=== PATIENT | female | born 1970 | race Caucasian/White ===

== ENCOUNTER 2016-08-15 11:31 | Inpatient (IN) ==
--- NOTE | 2016-08-15 12:28 | XRay Report ---
Referring Physician: Prashant Mcnulty Exam: XR chest 1V portable Date: August 15, 2016 at 12:10 PM Reason: CVA Comparison: Chest PA lateral April 17, 2012 Findings: The cardiac silhouette is normal in size. The lungs are poorly expanded, and there is minimal atelectasis in the perihilar regions and at both lung bases. No pneumothorax or pleural effusion is identified. No acute osseous process is seen. Impression: The lungs are poorly expanded, and there is minimal atelectasis within both lungs. PROCEDURE INTERPRETED AT [facility] DEPARTMENT OF RADIOLOGY Final Report Signed by: Dr. Timothy Alfonso
--- NOTE | 2016-08-15 12:34 | CT Report ---
CT head/brain wo con Indication: Left-sided body weakness. CT BRAIN WITHOUT CONTRAST DLP: 1073 mGy*cm. One or more of the following dose reduction techniques was used: Automated exposure control, adjustment of the mA and/or kV according the patient size, or use of iterative reconstruction techniques. Comparison: 01/07/2013. Date of admission: 08/15/2016. Technique: Axial noncontrast CT images of the brain were obtained. Findings: Left frontal infarct is unchanged when compared to prior examination. Cortical lezama-white junction and structures of the basal ganglia are otherwise well-defined. No acute hemorrhage, mass or mass effect. No significant volume loss. No bone lesions. Visualized sinuses and mastoid air cells are clear. Impression: Old left frontal lobe infarct. No acute intracranial pathology. PROCEDURE INTERPRETED AT [facility] DEPARTMENT OF RADIOLOGY Final Report Signed by: Edvin Oliver M.D.
[2016-08-15 12:48] LABS: Basophils # 0.1 10*3/uL (0.0-0.2); Basophils % 0.4 % (0.0-0.8); Eosinophils # 0.1 10*3/uL (0.0-0.87); Eosinophils % 0.7 % (0.00-10.9); Hematocrit 38.6 VOL% (35.7-47.0); Hemoglobin 12.7 GM/DL (12.0-16.0); Immature Granulocytes % 0.5 %; Immature Granulocytes Absolute 0.07 #; Lymphocytes # 3.8 10*3/uL (1.4-4.0); Lymphocytes % 28.7 % (21.3-54.2); Mean Corpuscular HGB Conc 32.9 GM/DL (32-36); Mean Corpuscular Hemoglobin 29 PG (27-34); Mean Corpuscular Volume 87.7 FL (87-102); Mean Platelet Volume 10.7 FL (9.6-12.0); Monocytes # 0.6 10*3/uL (0.11-0.8); Monocytes % 4.7 % (1.7-12.7); Neutrophils # 8.5 10*3/uL (1.4-7.4); Platelet Count 281 T/CUMM (130-400); Red Cell Distribution Width 11.9 % (9.3-17.3); White Blood Count 13.2 T/CUMM (4-12)
[2016-08-15 12:54] LABS: INR 0.9; PT Patient Result 9.9 SECS
[2016-08-15 13:21] LABS: Alanine Aminotransferase 14 U/L (13-56); Albumin 3.9 G/DL (3.4-5.0); Alkaline Phosphatase 75 U/L (45-117); Aspartate Amino Transferase 10 U/L (0-37); Bilirubin,Total < 0.39 MG/DL (0.2-1.0); Blood Urea Nitrogen 12 MG/DL (7-18); Calcium 9.1 MG/DL (8.5-10.1); Glucose 91 MG/DL (74-106); Osmolality,Calculated 282.1 MOS/KG (273-304); Potassium 3.8 MMOL/L (3.5-5.1); Sodium 142 MMOL/L (136-145); Total Protein 7.2 G/DL (6.4-8.3)
[2016-08-15 13:21] LABS: Apearance,Urine CLEAR (Clear); Bacteria,Urine Occasional /HPF (Few); Bilirubin,Urine Negative (Negative); Blood, Urine Negative (Negative); Glucose,Urine (UA) Negative (Negative); Ketones,Urine 5 mg/dL (Negative); Mucus,Urine Occasional /LPF (Occasional); Nitrite,Urine Negative (Negative); Protein,Urine Negative; Urine Color Yellow (Yellow); Urine Specific Gravity 1.005 (1.001-1.035); Urine Urobilinogen < 2.0 EU/DL (0.2-1.0)
[2016-08-15 13:33] LABS: Barbiturates Screen,Urine Negative (Negative); Benzodiazepines Screen,Urine Negative (Negative); Cannabinoid Screen,Urine Negative (Negative); Opiate Screen,Urine Positive (Negative); Phencyclidine Screen,Urine Negative (Negative)
--- NOTE | 2016-08-15 13:49 | Emergency Department Note ---
Chas Elias Meredith, am scribing for, and in the presence of, Prashant Mcnulty MD 12:02. Hamlet Elias Phillip K, MD, personally performed the services described in this documentation, ascribed by Lilian Doherty in my presence, and it is both accurate and complete 325 . Arrival - Arrival Chief Complaint: Neuro Stated Complaint: CVA ED Nursing Triage Note: EMS CALLED FOR C/O CHEST PAIN. ON FURTHER ASSESSMENT PT C/O WEAKNESS TO LEFT SIDE WITH PARALYSIS TO LEFT EXTREMITIES. PT ABLE TO ANSWER QUESTIONS APPROPRIATELY BUT SPEAKING IN A WHISPER. NO FACIAL DROOP OR SLURRED SPEECH NOTED. PT HAD SIMILAR EPISODE 2 WEEKS AGO SHE WAS NOT SEEN ABOUT. Mode of Arrival: Stretcher Limitations: Altered Mental Status (lethargic and slow to respond) Source: Patient, EMS, Old Records Reviewed, RN Notes Reviewed Time Seen by Provider: 08/15/16 11:44 - History of Present Illness HPI Narrative: Pt is a 46 y/o white female brought to the ED by EMS from her work place. They were initially called for chest pain. When EMS arrived pt was laying on the floor. Pt stated that she was weak and then went incoherent. She told EMS that 2 weeks ago she had an episode of syncope then left-sided weakness. She did not go see a doctor at that time. At the time of exam, pt will answer questions appropriately but is lethargic and slow to respond. Pt states she took vitamins , Prozac, and Provigil this morning as normal. She has a history of depression. Onset (ago): hour(s) Allergies/Adverse Reactions: Allergies Allergy/AdvReac Type Severity Reaction Status Date / Time latex Allergy RASH Verified 08/15/16 11:58 Cefaclor [From Ceclor] AdvReac Difficulty Verified 08/15/16 11:58 Breathing levofloxacin [From Levaquin] AdvReac Palpitation Verified 08/15/16 11:58 s Home Medications: Home Medications Medication Instructions Recorded Confirmed Type Cyclobenzaprine [Flexeril] 10 mg PO DAILY 09/28/14 09/28/14 History LORazepam TAB [Ativan Tab] 1 mg PO BID 09/28/14 09/28/14 History Lurasidone HCl [Latuda] 20 mg PO DAILY 09/28/14 09/28/14 History Modafinil [Provigil] 100 mg PO DAILY 09/28/14 09/28/14 History Naproxen [Naprosyn Tab] 375 mg PO BID 09/28/14 09/28/14 History traMADol TAB [Ultram] 1 - 2 tablet PO Q6H PRN 09/28/14 09/28/14 History Review of System - Review of System ROS unobtainable: due to mental status (lethargic and slow to resond) - Review of System Cardiovascular: Present: as per HPI, chest pain, syncope (2 weeks ago) Neurological: Present: as per HPI, weakness (left-sided) Medical,Surgical,& Family Hx - Medical History Psychological: History of: Anxiety Disorders, Depression - Social History Smoking Status: Never smoker Frequency of Alcohol Use: None Type of Drug Use: None Exam Vital Signs: Vital Signs Temperature 97.6 F 08/15/16 11:31 Pulse Rate 73 08/15/16 11:31 Respiratory Rate 16 08/15/16 11:40 Blood Pressure 135/75 08/15/16 11:31 O2 Sat by Pulse Oximetry 98 08/15/16 11:31 - General Exam limited due to: ALOC (lethargic and slow to respond) General appearance: in no apparent distress, lethargic, obese - Head Head exam: Present: atraumatic, normocephalic - Eye Eye exam: Present: normal appearance, PERRL, EOMI - ENT ENT exam: Present: mucous membranes moist, normal external ear exam - Neck Neck exam: Present: full ROM, trachea midline. Absent: tenderness, meningismus , lymphadenopathy, thyromegaly - Chest Chest inspection: Present: symmetric chest wall rise. Absent: tenderness, rash - Respiratory Respiratory exam: Present: normal lung sounds bilaterally. Absent: respiratory distress - Cardiovascular Cardiovascular exam: Present: regular rate, normal rhythm, normal heart sounds. Absent: murmur, rubs, gallop - Abdominal Exam Abdominal exam: Present: soft, normal bowel sounds. Absent: distention, tenderness - Extremities Exam Extremities exam: Present: full ROM, normal capillary refill. Absent: tenderness, pedal edema, calf tenderness - Back Exam Back exam: Present: full ROM. 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 Leal evaluated in the ED and does not feel TPA is indicated. - Reevaluation(s) Reevaluation #1: Patient continues to be weak in her left side. The nurses stated that she did move her left leg somewhat when they did a cath urine on her. Patient complaining of numbness in her left arm. Patient discussed with Dr. Leal who will evaluate and decide whether TPA is indicated. Time: 13:15 Results - Labs CBC & BMP: 08/15/16 12:36 08/15/16 12:36 Lab Results: I have reviewed the patients labs Labs: Laboratory Tests 08/15/16 12:36 WBC 13.2 H RBC 4.40 Hgb 12.7 Hct 38.6 Plt Count 281 Neut # (Auto) 8.5 H Laboratory Tests 08/15/16 12:36 INR 0.9 PT Patient/Control Mix 9.9 Laboratory Tests 08/15/16 08/15/16 08/15/16 12:17 12:17 12:36 Sodium 142 Potassium 3.8 Chloride 104 Carbon Dioxide 26 Anion Gap 15.8 H BUN 12 Creatinine 0.70 Urine pH 7.0 Ur Specific [place] 1.005 Urine Ketones 5 Urine Urobilinogen < 2.0 H Urine Bacteria Occasional Urine Mucus Occasional Urine Opiates Screen Positive H Ur Barbiturates Screen Negative Ur Phencyclidine Scrn Negative U Amphetamine/Methamph Negative U Benzodiazepines Scrn Negative U Cocaine Metab Screen Negative U Cannabinoids Screen Negative Serum Alcohol < 15 L - EKG EKG results: interpreted by LINDSAY, WNL, sinus rhythm - Diagnostic Findings Procedure: Chest x-ray: report reviewed by me (The lungs are poorly expanded and there is minimal atelectasis within both lungs. ), CT: report reviewed by me (Head: Old left frontal lobe infarct. No acute intracranial pathology. ) Disposition Clinical Impression: left-sided weakness, Lethargy Case discussed with: patient Disposition: Still a Patient Condition: Guarded Additional Instructions: Admitted to the hospitalist.
[2016-08-15] MEDS ORDERED: NALOXONE 0.4 MG/ML VIAL ONE (13:53)
[2016-08-15] MEDS ORDERED: NALOXONE 0.4 MG/ML VIAL IV STA (14:00)
--- NOTE | 2016-08-15 14:30 | EKG Report ---
Stationary ECG Study [facility] ER Test Date: 08/15/2016 12:01:46 PM Pat Name: ANNAMARIE KAUFMAN Department: Room: Gender: F Rat Exterminator: : 1970 Requested by: Prashant Ruiz Order Number: [id number] Reading MD: JENN NGO Intervals [place] Rate: 86 P: 999 DE: 0 QRS: 52 QRSD: 94 T: 24 QT: 393 QTc: 437 Interpretive Statements SINUS RHYTHM LOW QRS VOLTAGE IN PRECORDIAL LEADS Electronically Signed On 08-15-16 23:04:33 CDT by JENN NGO [email or web address]
--- NOTE | 2016-08-15 16:52 | Neurology Consult Note ---
History of Present Illness History of present illness: 46-year-old right-handed white lady with past medical history significant for anxiety and depression admitted to the hospital with acute onset of left-sided weakness. Patient was brought to the ED by EMS from her workplace.They were initially called for chest pain. When EMS arrived pt was laying on the floor. Pt stated that she was weak and then went incoherent. She told EMS that 2 weeks ago she had an episode of syncope then left-sided weakness. She did not go see a doctor at that time. Patient has fluent speech and good comprehension. However reporting that she she cannot move her left upper extremity but can move now her left lower extremity. She denies any difficulty in swallowing or speech. She denies any difficulty with vision. She moved her left leg when they put Mares catheter in. CT of the head was unremarkable for any acute stroke. Home Medications Medication Instructions Recorded Confirmed Type Cyclobenzaprine [Flexeril] 10 mg PO DAILY 09/28/14 09/28/14 History LORazepam TAB [Ativan Tab] 1 mg PO BID 09/28/14 09/28/14 History Lurasidone HCl [Latuda] 20 mg PO DAILY 09/28/14 09/28/14 History Modafinil [Provigil] 100 mg PO DAILY 09/28/14 09/28/14 History Naproxen [Naprosyn Tab] 375 mg PO BID 09/28/14 09/28/14 History traMADol TAB [Ultram] 1 - 2 tablet PO Q6H PRN 09/28/14 09/28/14 History Allergies Allergy/AdvReac Type Severity Reaction Status Date / Time latex Allergy RASH Verified 08/15/16 11:58 Cefaclor [From Ceclor] AdvReac Difficulty Verified 08/15/16 11:58 Breathing levofloxacin [From Levaquin] AdvReac Palpitation Verified 08/15/16 11:58 s 12 point system: reviewed and no additional remarkable complaints except as stated Medical,Surgical,& Family Hx - Medical History Psychological: History of: Anxiety Disorders, Depression - Social History Smoking Status: Never smoker Frequency of Alcohol Use: None Type of Drug Use: None Exam - Constitutional Vitals: Period Temp Pulse Resp BP Sys/Campos Pulse Ox Last 24 Hr 76-86 16-18 134-139/66-80 94-95 Exam: GENERAL: Patient is in no acute distress. NECK: Neck is supple. There is no JVD. No carotid bruits present. No thyroid masses. CVS: First and second heart sounds are normal. There is no S3 present. Regular rate and rhythm. RESPIRATORY: Lungs are clear to auscultation without any rales or rhonchi. ABDOMEN: Soft and non-tender. Bowel sounds are present. There is no hepatosplenomegaly. EXT: There is no palpable edema. Peripheral pulses are present. Skin: No rashes Central Nervous system: General: Alert, awake and Oriented x 3 Speech: Fluent Comprehension: Intact and normal Facial expressions: Normal Cranial Nerves: CN1/Olfactory: Normal CN II/ Optic: Normal, Visual Stanford unreliable CN III, and : MARQUES & EOMI CN V: Normal & intact CN VII: face is symmetric CNVIII: Normal CN XI/X/XI/XII: Intact and Normal Motor: Bulk and Tone is normal. Strength in the right 5/5 Strength in the left lower extremity 3/5, left upper extremity3-4/5. There is some element of giveaway weakness Sensory: Grossly intact for all the modalities of PP, LT and temp sense Reflexes: 1+ and symmetrical Cerebellar function: Normal finger to nose and heel to nails testing in the right but could not assess in the left. Toes: Equivocal Gait: Not tested at this time Results - Labs CBC & BMP: 08/15/16 12:36 08/15/16 12:36 Assessment and Plan (1) Left-sided weakness Status: Acute Assessment and plan: Recommend MRI of the brain Carotid ultrasound Lipid panel PT and OT consult Would not recommend TPA at this time Start and continue aspirin a day Current Visit: Yes
[2016-08-15] MEDS ORDERED: ACETAMINOPHEN 325 MG TABLET PO PRN (17:10)
--- NOTE | 2016-08-15 17:44 | Hospitalist History & Physical ---
<Pritesh Patel - Last Filed: 08/15/16 18:35> Assessment and Plan (1) Chest pain Status: Acute Assessment and plan: Obtain serial troponins. Repeat EKG. Current Visit: Yes (2) Syncope Status: Acute Assessment and plan: Neurology has been consulted. Obtain carotid dopplers, Echo. Current Visit: Yes (3) Left-sided weakness Status: Acute Assessment and plan: Symptoms have resolved. Will continue neuro checks. Neurology has been consulted. Will keep overnight for observation. Current Visit: Yes History of Present Illness Chief complaint: left-sided weakness History of present illness: Ms. Kumar is a 46 year old female with a past medical history significant for anxiety, depression, migraines who presented to the ED with sudden left-sided weakness and chest pain since approximately 11am today. Patient reports that she was at work when her chest and neck began to hurt, she became weak before she eventually experienced syncope. She was lying on the floor when EMS arrived. She reports having left-sided weakness, unable to move her arm and leg. Upon arrival in the ER, she reports regaining feeling in both her left arm and leg. Head CT was obtained in the ER revealing an old left frontal lobe infarct and no acute intracranial pathology. CXR revealed poorly expanded lungs with minimal atelectasis in both lungs. She reports that she is still experiencing numbness and tingling in her arm and leg. On exam, strength is equal bilaterally in both upper and lower extremities and reflexes are present in both arms. She appears drowsy, but her speech remains fluent and coherent. She is able to sit up using both arms to push from a lying position. She reports that the pain in her chest feels like "an elephant sitting on her". Pain was reproducible to palpation. Cardiac enzymes are negative. There is no carotid bruit present. Patient will be admitted to the hospital medicine service for observation and stroke workup. Neurology has been consulted. We will follow the recommendations of neurology and other consultants. Home Medications Medication Instructions Recorded Confirmed Type LORazepam TAB [Ativan Tab] 1 mg PO BID 09/28/14 08/15/16 History Modafinil [Provigil] 200 mg PO DAILY 09/28/14 08/15/16 History FLUoxetine [PROzac] 20 mg PO DAILY 08/15/16 08/15/16 History Allergies Allergy/AdvReac Type Severity Reaction Status Date / Time latex Allergy RASH Verified 08/15/16 11:58 Cefaclor [From Ceclor] AdvReac Difficulty Verified 08/15/16 11:58 Breathing levofloxacin [From Levaquin] AdvReac Palpitation Verified 08/15/16 11:58 s Medical,Surgical,& Family Hx - Medical History Psychological: History of: Anxiety Disorders, Depression, Previous Suicide Attempt Neurology: History of: Migraine Respiratory: History of: Bronchitis Gastrointestinal: History of: GERD, Polyps (removed), Ulcerative Colitis Musculoskeletal: Comment Only: Musculoskeletal Problems (psiatica) Reproductive: History of: Ovarian Cysts - Surgical History Cardiac Surgeries: Sugical HX of: Cardiac Catheterization HEENT Surgeries: Surgical HX of: Tonsilectomy & Adenoidectomy Abdominal Surgeries: Surgical HX of: Appendectomy, Cholecystectomy, Colonoscopy , EGD Reproductive Surgeries: Surgical HX of;: Hysterectomy Orthopedic Surgeries: Surgical HX of;: Orthopedic Surgery (right shoulder, ganglion cyst removed from right hand) - Family History Family History: Reports;: Family Cancer (mom), Family Heart Disease (dad), Family Stroke (dad) - Social History Smoking Status: Never smoker Frequency of Alcohol Use: None Type of Drug Use: None Marital Status: Lives With:: Spouse Functional capacity: independent ambulation - Constitutional Constitutional: Present: fatigue, headache(s), weakness - EENT Eyes: Present: blurry vision. Absent: loss of vision Ears: Absent: decreased hearing, ear pain Nose, mouth and throat: Present: headache(s). Absent: neck mass, neck pain, sinus pressure - Cardiovascular Cardiovascular: Present: chest pain at rest, dyspnea. Absent: edema, radiating jaw, neck or arm pain, lightheadedness - Respiratory Respiratory: Present: dyspnea. Absent: cough, wheezing - Gastrointestinal Gastrointestinal: Absent: abdominal pain, change in bowel habits, nausea, vomiting - Genitourinary Genitourinary: Absent: abnormal vaginal bleeding, difficulty urinating - Musculoskeletal Musculoskeletal: Present: muscle weakness. Absent: back pain, joint swelling - Neurological Neurological: Present: numbness, paresthesias, syncope. Absent: abnormal gait, abnormal speech - Psychiatric Psychiatric: Absent: anxiety, auditory hallucinations, difficulty concentrating - Endocrine Endocrine: Absent: cold intolerance, heat intolerance - Hematologic/Lymphatic Hematologic/Lymphatic: Absent: easy bleeding, easy bruising Exam - Constitutional Vitals: Period Temp Pulse Resp BP Sys/Campos Pulse Ox Last 24 Hr 98.0 F 75-86 16-18 134-143/64-80 94-96 Exam: General appearance: normal weight, no acute distress - Head Head exam: Present: normocephalic, atraumatic - Eye Eye exam: Present: EOMI. Absent: conjunctival injection, nystagmus Pupils: Present: MARQUES, normal accommodation - ENT ENT exam: Present: normal exam, normal external ear exam - Neck Neck exam: Present: normal inspection. Absent: lymphadenopathy, tenderness, thyromegaly - Respiratory Respiratory exam: Present: clear to auscultation bilaterally. Absent: rales, rhonchi, wheezes - Cardiovascular Cardiovascular exam: Present: regular rate and rhythm. Absent: carotid bruit, gallop, rubs - GI/Abdominal GI/Abdominal exam: Present: normal bowel sounds. Absent: ascites, distended, mass - Extremities Exam Extremities exam: Present: normal inspection, normal capillary refill. Absent: edema - Back Exam Back exam: Absent: CVA tenderness (L), CVA tenderness (R) - Neurological Exam Neurological exam: Present: alert, oriented X3, CN II-XII intact - Psychiatric Psychiatric exam: Present: flat affect, normal mood - Skin Skin exam: Present: normal color, warm, dry Results - Labs CBC & BMP: 08/15/16 12:36 08/15/16 12:36 Lab Results: I have reviewed the past 24 hour labs - EKG EKG results: interpreted by ERMD, sinus rhythm (with 2nd degree AV block) - Diagnostic Findings Procedure: Chest x-ray: report reviewed by me, CT: image reviewed by me, report reviewed by me Quality Measures - Stroke Onset of Symptoms Date: 08/15/16 <Abigail Lauren - Last Filed: 08/16/16 07:37> History of Present Illness History of present illness: Ms. Kumar is a 46 year old female with left sided weakness, we will get he a stroke work up and then r/o a possible conversion order Exam - Constitutional Vitals: Period Temp Pulse Resp BP Sys/Campos Pulse Ox Last 24 Hr 96.3 F-98.7 F 75-88 16-20 110-143/52-80 94-96 Results - Labs CBC & BMP: 08/16/16 04:12 08/16/16 04:12
[2016-08-15 18:07] LABS: Risk Ratio 4.68
[2016-08-15 18:14] LABS: Troponin I Only < 0.015 NG/ML (0.00-0.045)
--- NOTE | 2016-08-15 18:29 | Ultrasound Report ---
Bilateral carotid Doppler. Grayscale, color flow, spectral analysis performed and interpreted. Indication: Left-sided weakness. No comparison. No significant atherosclerotic changes are seen. The right internal carotid artery peak systolic velocity is 101 cm/s, with an IC/CC ratio 1.2. The left internal carotid artery peak systolic velocity is 86 cm/s, with an IC/CC ratio 1.0. There is antegrade flow within each vertebral artery. Impression: Using NASCET criteria, findings consistent with less than 50% stenosis bilaterally. PROCEDURE INTERPRETED AT [facility] DEPARTMENT OF RADIOLOGY Final Report Signed by: Dr. Kimberley Mei
[2016-08-15] MEDS: PANTOPRAZOLE 40 MG TABLET PO SCH (18:42)
[2016-08-15] MEDS: ENOXAPARIN 40 MG/0.4 ML SYRINGE SUBCUT SCH (18:43)
[2016-08-15] MEDS: LORazepam 1 MG TABLET PO SCH (20:25)
[2016-08-15] MEDS: ONDANSETRON 4 MG/2 ML VIAL IV PRN (20:25)
[2016-08-16 06:04] LABS: Basophils # 0.1 10*3/uL (0.0-0.2); Basophils % 0.6 % (0.0-0.8); Eosinophils # 0.1 10*3/uL (0.0-0.87); Hematocrit 35.4 VOL% (35.7-47.0); Hemoglobin 11.7 GM/DL (12.0-16.0); Immature Granulocytes % 0.5 %; Immature Granulocytes Absolute 0.06 #; Lymphocytes # 4.9 10*3/uL (1.4-4.0); Lymphocytes % 42.1 % (21.3-54.2); Mean Corpuscular HGB Conc 33.1 GM/DL (32-36); Mean Corpuscular Hemoglobin 29 PG (27-34); Mean Corpuscular Volume 86.8 FL (87-102); Mean Platelet Volume 11.6 FL (9.6-12.0); Monocytes # 0.6 10*3/uL (0.11-0.8); Monocytes % 5.5 % (1.7-12.7); Neutrophils # 5.9 10*3/uL (1.4-7.4); Neutrophils % 50.3 % (38.7-73.9); Platelet Count 282 T/CUMM (130-400); Red Blood Count 4.08 MC/CUMM (3.8-5.5); Red Cell Distribution Width 12.2 % (9.3-17.3); White Blood Count 11.7 T/CUMM (4-12)
[2016-08-16 06:48] LABS: Albumin 3.5 G/DL (3.4-5.0); Bilirubin,Total 0.7 MG/DL (0.2-1.0); Calcium 8.9 MG/DL (8.5-10.1); Osmolality,Calculated 285.7 MOS/KG (273-304); Potassium 4.2 MMOL/L (3.5-5.1); Risk Ratio 4.64; VLDL CHOLESTEROL 30.8 MG/DL
[2016-08-16] MEDS ORDERED: SODIUM CHLORIDE 0.9% 1,000 ML IV SCH (08:00)
[2016-08-16 08:11] LABS: Basophils # 0.1 10*3/uL (0.0-0.2); Basophils % 0.6 % (0.0-0.8); Eosinophils # 0.1 10*3/uL (0.0-0.87); Hematocrit 38.5 VOL% (35.7-47.0); Hemoglobin 12.4 GM/DL (12.0-16.0); Immature Granulocytes % 0.5 %; Immature Granulocytes Absolute 0.05 #; Lymphocytes % 36.5 % (21.3-54.2); Mean Corpuscular HGB Conc 32.2 GM/DL (32-36); Mean Corpuscular Hemoglobin 29 PG (27-34); Mean Corpuscular Volume 89.7 FL (87-102); Mean Platelet Volume 10.7 FL (9.6-12.0); Monocytes # 0.6 10*3/uL (0.11-0.8); Monocytes % 5.1 % (1.7-12.7); Neutrophils # 6.1 10*3/uL (1.4-7.4); Neutrophils % 56.3 % (38.7-73.9); Platelet Count 286 T/CUMM (130-400); Red Blood Count 4.29 MC/CUMM (3.8-5.5); Red Cell Distribution Width 12.2 % (9.3-17.3); White Blood Count 10.8 T/CUMM (4-12)
[2016-08-16] MEDS: ASPIRIN EC 325 MG TABLET PO SCH (08:16)
[2016-08-16 08:22] LABS: PT Patient Result 10.1 SECS; Partial Thromboplastin Time 27.3 SECS (0-40)
[2016-08-16] MEDS ORDERED: ATORVASTATIN 40 MG TABLET PO SCH (08:30)
[2016-08-16 08:42] LABS: Alanine Aminotransferase 15 U/L (13-56); Albumin 3.7 G/DL (3.4-5.0); Alkaline Phosphatase 67 U/L (45-117); Aspartate Amino Transferase 7 U/L (0-37); Bilirubin,Total < 0.39 MG/DL (0.2-1.0); Blood Urea Nitrogen 10 MG/DL (7-18); Calcium 8.9 MG/DL (8.5-10.1); Glucose 94 MG/DL (74-106); Osmolality,Calculated 284.8 MOS/KG (273-304); Sodium 144 MMOL/L (136-145); Total Protein 6.5 G/DL (6.4-8.3)
[2016-08-16] MEDS ORDERED: MODAFINIL PO SCH (09:00)
[2016-08-16] MEDS ORDERED: ASPIRIN EC 81 MG TABLET PO SCH (09:00)
[2016-08-16] MEDS ORDERED: ASPIRIN 325 MG TABLET PO SCH (09:00)
[2016-08-16] MEDS ORDERED: LURASIDONE HCL 20 MG PO SCH (09:00)
[2016-08-16] MEDS: LORazepam 1 MG TABLET PO SCH ×2 (09:05→21:27)
[2016-08-16] MEDS: CYCLOBENZAPRINE 10 MG TABLET PO SCH (09:05)
[2016-08-16] MEDS: PANTOPRAZOLE 40 MG TABLET PO SCH (09:05)
--- NOTE | 2016-08-16 09:37 | Magnetic Resonance Report ---
MR head/brain wo con Indication: Left-sided weakness Comparison: CT brain dated August 15, 2016 Technique: Multiplanar magnetic resonance imaging was performed of the brain without the use of intravenous contrast. Findings: Small encephalomalacia within the high left frontoparietal region consistent with old infarct. The midline structures are nondisplaced. There is no evidence of hydrocephalus. The lezama-white matter differentiation is otherwise maintained. There is no evidence of acute intracranial hemorrhage or ischemia. The included orbits and their contents appear within normal limits. T2 major vascular flow voids are maintained. IMPRESSION: No acute intracranial abnormality demonstrated. Small encephalomalacia within the high left frontoparietal region consistent with old infarct. PROCEDURE INTERPRETED AT [facility] DEPARTMENT OF RADIOLOGY Final Report Signed by: Dr Juvencio Palmer
[2016-08-16] MEDS: ONDANSETRON 4 MG/2 ML VIAL IV PRN (09:45)
[2016-08-16] MEDS: ENOXAPARIN 40 MG/0.4 ML SYRINGE SUBCUT SCH (17:43)
--- NOTE | 2016-08-16 17:50 | Neurology Progress Note ---
Neurology - PN : Subjective Interval history: Ms. Kumar seems to be doing fairly well. However this morning she had another episode where she had decreasing level of consciousness. It lasted for 10 minutes to 15 minutes. MRI of the brain was obtained stat and it did not show any acute stroke. Carotid ultrasound revealed less than 50% stenosis. Exam (Progress Note) - Constitutional Vitals: Period Temp Pulse Resp BP Sys/Campos Pulse Ox Last 24 Hr 96.3 F-99.9 F 73-88 16-20 101-120/51-69 95-97 Exam: GENERAL: Patient is in no acute distress. NECK: Neck is supple. There is no JVD. No carotid bruits present. No thyroid masses. CVS: First and second heart sounds are normal. There is no S3 present. Regular rate and rhythm. RESPIRATORY: Lungs are clear to auscultation without any rales or rhonchi. ABDOMEN: Soft and non-tender. Bowel sounds are present. There is no hepatosplenomegaly. EXT: There is no palpable edema. Peripheral pulses are present. Skin: No rashes Central Nervous system: General: Alert, awake and Oriented x 3 Speech: Fluent Comprehension: Intact and normal Facial expressions: Normal Cranial Nerves: CN1/Olfactory: Normal CN II/ Optic: Normal, Visual Stanford unreliable CN III, and : MARQUES & EOMI CN V: Normal & intact CN VII: face is symmetric CNVIII: Normal CN XI/X/XI/XII: Intact and Normal Motor: Bulk and Tone is normal. Strength in the right 5/5 Strength in the left lower extremity 4/5, left upper extremity 4/5. There is some element of giveaway weakness Sensory: Grossly intact for all the modalities of PP, LT and temp sense Reflexes: 1+ and symmetrical Cerebellar function: Normal finger to nose and heel to nails testing in the right but could not assess in the left. Toes: Equivocal Gait: Not tested at this time however she has been getting up and walking. Results - Labs CBC & BMP: 08/16/16 08:02 08/16/16 08:02 Assessment and Plan (1) Left-sided weakness Status: Acute Assessment and plan: Etiology is not clear however anxiety/functional element cannot be excluded entirely. She is also reporting headaches and will go ahead and start Topamax Okay to go home from neuro standpoint Sign off call as needed Current Visit: Yes Quality Measures - Stroke Onset of Symptoms Date: 08/15/16
[2016-08-16] MEDS: TOPIRAMATE 25 MG TABLET PO SCH (21:27)
--- NOTE | 2016-08-17 02:57 | ECHO Report ---
Sharona Kumar Exam Date: 08/16/2016 09:34 Referring Physician: Technologist: Selene Dalton RDCS Age: 46 Ht (in): 68 Wt (lb): 300 Gender: F Exam Location: [facility] Echo Indications: Chest pain, unspecified, Syncope and collapse, Left sided weakness, Lethargic BP: 110 / 52 HR: 70 Rhythm: Sinus Technical Quality: Fair IMPRESSIONS Normal LV systolic function, ejection fraction 60%. Grade 1/4 diastolic dysfunction. Trace tricuspid regurgitation. MEASUREMENTS (Male / Female) Normal Values 2D ECHO LV Diastolic Diameter PLAX 4.7 cm 4.2 - 5.9 / 3.9 - 5.3 cm LV Systolic Diameter PLAX 2.6 cm LV Fractional Shortening PLAX 45.9 % IVS Diastolic Thickness 0.9 cm 0.6 - 1.0 / 0.6 - 0.9 cm LVPW Diastolic Thickness 0.9 cm 0.6 - 1.0 / 0.6 - 0.9 cm RV Internal Dim ED PLAX 2.8 cm Aortic Root Diameter 3.2 cm LA Systolic Diameter LX 3.8 cm 3.0 - 4.0 / 2.7 - 3.8 cm FINDINGS Left Ventricle Normal left ventricular cavity size. Normal left ventricular wall thickness. Left ventricular ejection fraction is estimated at 60%. Right Ventricle The right ventricle is normal in size and function. Right Atrium The right atrium is normal in size. Left Atrium The left atrium is normal in size. Mitral Valve Morphologically normal mitral valve without significant stenosis or prolapse. There is no mitral regurgitation. Aortic Valve Morphologically normal aortic valve without significant sclerosis or stenosis. There is no aortic regurgitation. Tricuspid Valve Morphologically normal tricuspid valve. Trace tricuspid valve regurgitation. Pulmonic Valve Morphologically normal pulmonic valve without significant stenosis. There is no pulmonic regurgitation. Pericardium Normal pericardium without effusion. Aorta Normal ascending aorta dimension. Stephani Del Valle MD (Electronically Signed) Final Date: 17 August 2016 02:56
--- NOTE | 2016-08-17 08:08 | Discharge Summary ---
<Pritesh Patel - Last Filed: 08/17/16 07:56> Hospital Course - Hospital Course Hospital Course: Mrs. Kumar is a 46 year old white female with a history significant for anxiety, depression, migraines who was admitted on 08/15/2016 with sudden left- sided weakness and chest pain. On admission, symptoms had resolved. MRI showed no acute intracranial abnormalities; small encephalomalacia within the high left fronto parietal region consistent with an old infarct. Neurology was consulted and found no acute evidence of stroke, some element of giveaway weakness, with sensory motor skills grossly intact. However, she was admitted for observation. On 08/16/2016, the patient again experienced some decreasing level of consciousness which lasted approximately 10-15 minutes. Stat MRI of the brain did not show any acute stroke. Carotid dopplers revealed less than 50 % stenosis. Etiology for this weakness and decreased LOC is unclear, however, we cannot entirely rule out anxiety or some funtional element. Neurology did start the patient on Topamax for complaints of headaches. Patient has reached maximal benefit from hospitalization and is ready for discharge today. - Time spent with patient Time with patient DS: Greater than 30 minutes Diagnosis - Discharge Diagnosis (1) Chest pain Status: Acute (2) Syncope Status: Acute (3) Left-sided weakness Status: Acute Discharge Plan - Discharge Data Disposition: Disch To Home/Self Care - Discharge Medications New Acetaminophen Tab [Tylenol Tab] 325 mg PO Q4H PRN #0 tablet PRN Reason: fever, headache/body aches HYDROcodone/ACETAMIN 5-325 [[place] 5-325] 1 tablet PO Q4H PRN #20 tablet PRN Reason: Pain Mild (1-3) Atorvastatin [Lipitor] 40 mg PO BEDTIME #30 tablet Pantoprazole Tab [Protonix Tab] 40 mg PO DAILY #30 tablet Topiramate [Topamax] 25 mg PO BID #60 tablet Continue LORazepam TAB [Ativan Tab] 1 mg PO BID Modafinil [Provigil] 200 mg PO DAILY FLUoxetine [PROzac] 20 mg PO DAILY - Follow Up or Referral - Forms/Instructions Exam - Constitutional Vitals: Period Temp Pulse Resp BP Sys/Campos Pulse Ox Last 24 Hr 97.7 F-98.5 F 69-83 16-20 101-118/51-61 95-97 Discharge Results Labs on day of discharge: Labs from last 24 hours 08/16/16 07:55 POC Glucose 94 DS: Provider Date of admission: 08/15/16 15:50 Primary care physician: . No PCP Attending physician on admission: Abigail Lauren MD Consults: 08/15/16 17:10 Consult to Physical Therapy [CONS] Routine Reason for Physical Therapy: Weakness 08/15/16 17:18 Consult to Dietitian [CONS] Routine Reason for Dietitian: Other 08/16/16 08:44 Consult to Occupational Therapy [CONS] Routine Reason for Occupational Therapy: Evaluate and Treat Discharging clinician: Pritesh ESCALONA Expected date of discharge: 08/17/16 <Abigail Lauren - Last Filed: 08/17/16 11:51> Hospital Course - Hospital Course Hospital Course: Time spent: 45mins - Time spent with patient Time with patient DS: Greater than 30 minutes Diagnosis - Discharge Diagnosis (1) Left-sided weakness Status: Acute (2) Chest pain Status: Acute (3) Syncope Status: Acute Discharge Plan - Discharge Data Condition at Discharge: Stable Discharge Diet: advance to your usual diet Activity: resume usual activities as tolerated - Forms/Instructions Additional Discharge Instructions: follow with PCP in 1week
[2016-08-17] MEDS: PANTOPRAZOLE 40 MG TABLET PO SCH (08:16)
[2016-08-17] MEDS: LORazepam 1 MG TABLET PO SCH (08:16)
[2016-08-17] MEDS: TOPIRAMATE 25 MG TABLET PO SCH (08:16)
[2016-08-17] MEDS: ASPIRIN EC 325 MG TABLET PO SCH (08:16)
[2016-08-17] MEDS: CYCLOBENZAPRINE 10 MG TABLET PO SCH (08:16)
[2016-08-17 11:54] VITALS: BP 124/62
== END 2016-08-17 12:30 | disposition home or self-care (01) | DRG 948 ==
LOC: EDUNIT# → EDBD → N.ED 11:31 → N.EDINP 15:50 → N.TELES 17:09
PROVIDERS: ADMIT Internal Medicine; ATTEND Internal Medicine

== ENCOUNTER 2016-08-25 12:08 | Observation (INO) ==
[2016-08-25 12:54] LABS: Basophils # 0.1 10*3/uL (0.0-0.2); Basophils % 0.4 % (0.0-0.8); Eosinophils # 0.1 10*3/uL (0.0-0.87); Eosinophils % 0.7 % (0.00-10.9); Hematocrit 38.8 VOL% (35.7-47.0); Hemoglobin 12.7 GM/DL (12.0-16.0); Immature Granulocytes % 0.6 %; Immature Granulocytes Absolute 0.07 #; Lymphocytes # 3.8 10*3/uL (1.4-4.0); Mean Corpuscular HGB Conc 32.7 GM/DL (32-36); Mean Corpuscular Hemoglobin 29 PG (27-34); Mean Corpuscular Volume 87.6 FL (87-102); Mean Platelet Volume 10.8 FL (9.6-12.0); Monocytes # 0.5 10*3/uL (0.11-0.8); Monocytes % 4.3 % (1.7-12.7); Platelet Count 308 T/CUMM (130-400); Red Blood Count 4.43 MC/CUMM (3.8-5.5); Red Cell Distribution Width 12.1 % (9.3-17.3); White Blood Count 12.6 T/CUMM (4-12)
[2016-08-25 13:10] LABS: Alanine Aminotransferase 17 U/L (13-56); Albumin 4.1 G/DL (3.4-5.0); Alkaline Phosphatase 81 U/L (45-117); Aspartate Amino Transferase 10 U/L (0-37); Bilirubin,Total < 0.39 MG/DL (0.2-1.0); Blood Urea Nitrogen 12 MG/DL (7-18); Calcium 8.7 MG/DL (8.5-10.1); Glucose 102 MG/DL (74-106); Lactic Acid 1.3 MMOL/L (0.4-2.0); Osmolality,Calculated 278.4 MOS/KG (273-304); Potassium 3.9 MMOL/L (3.5-5.1); Sodium 140 MMOL/L (136-145); Total Protein 6.9 G/DL (6.4-8.3)
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
[2016-08-25] MEDS ORDERED: ACETAMINOPHEN 325 MG TABLET PO PRN (14:49)
[2016-08-25] MEDS ORDERED: ONDANSETRON 4 MG/2 ML VIAL IV PRN (14:49)
[2016-08-25] MEDS ORDERED: LACTULOSE 20 GM/30 ML UDCUP PO PRN (14:49)
--- NOTE | 2016-08-25 17:37 | Hospitalist History & Physical ---
<Pritesh Patel - Last Filed: 08/25/16 18:23> Assessment and Plan - Time spent with patient Time spent with patient: Greater than 30 minutes (1) Left-sided weakness Status: Acute Assessment and plan: Patient describes continued left-sided weakness. She had an MRI this morning. Results are pending. Will order an EEG for tomorrow. Neurology has been consulted. Current Visit: No (2) Syncope Status: Acute Current Visit: No History of Present Illness Chief complaint: seizure History of present illness: Ms. Kumar is a 46 year old female with a history of cerebral hematoma, migraine who presents to the ER for evaluation of seizure-like activity with onset today. The patient reports that she was having an MRI done today when she began to have a metallic taste in her mouth and her upper and lower limbs began to jerk. Patient states that she then went to "sleep" and did not remember much about the episode when she came to. She says that she was told to come to the ER but she refused. She instead went to her primary care physician who insisted that she comes to the ER with the symptoms she was describing. Patient was last seen in the ED on 08/15/2016 with similar complaints, syncope and left-sided weakness. During that visit, she was seen by neurology and had multiple CT scans as well as MRIs that were all negative. She was discharged with follow-up appointment with neurology. On exam today, the patient reports continued left-sided weakness that is due to what she reports her PCP to call "brain seizures". Reflexes are all normal, strength is greater on the right side than the left. However, when patient was asked to hold up her left arm she held it with no problem, and she talks with her hands. She also reports a headache. Neurology has agreed to see the patient therefore she will be admitted to the hospital medicine service for evaluation and further management. Home Medications Medication Instructions Recorded Confirmed Type LORazepam TAB [Ativan Tab] 1 mg PO BID 09/28/14 08/25/16 History Modafinil [Provigil] 200 mg PO QAM 09/28/14 08/25/16 History FLUoxetine [PROzac] 20 mg PO QAM 08/15/16 08/25/16 History Acetaminophen Tab [Tylenol Tab] 325 mg PO Q4H PRN #0 tablet 08/17/16 08/25/16 Rx Atorvastatin [Lipitor] 40 mg PO BEDTIME #30 tablet 08/17/16 08/25/16 Rx HYDROcodone/ACETAMIN 5-325 [[place] 1 tablet PO Q4H PRN #20 tablet 08/17/16 Rx 5-325] Aspirin EC Tab 81 mg PO QPM 08/25/16 08/25/16 History Pantoprazole Tab [Protonix Tab] 40 mg PO QPM 08/25/16 08/25/16 History Topiramate [Topamax] 50 mg PO BID 08/25/16 08/25/16 History Allergies Allergy/AdvReac Type Severity Reaction Status Date / Time latex Allergy RASH Verified 08/25/16 12:13 Cefaclor [From Ceclor] AdvReac Difficulty Verified 08/25/16 12:13 Breathing levofloxacin [From Levaquin] AdvReac Palpitation Verified 08/25/16 12:13 s Medical,Surgical,& Family Hx - Medical History Psychological: History of: Depression, Previous Suicide Attempt Neurology: History of: Migraine Respiratory: History of: Bronchitis Gastrointestinal: History of: GERD, Polyps (removed), Ulcerative Colitis Musculoskeletal: Comment Only: Musculoskeletal Problems (psiatica) Reproductive: History of: Ovarian Cysts - Surgical History Cardiac Surgeries: Sugical HX of: Cardiac Catheterization Thoracic Surgeries: Patient denies;: Organ Transplant Neurologic Surgeries: Patient denies: Neurologic Surgery HEENT Surgeries: Surgical HX of: Tonsilectomy & Adenoidectomy Abdominal Surgeries: Surgical HX of: Appendectomy, Cholecystectomy, Colonoscopy , EGD Reproductive Surgeries: Surgical HX of;: Hysterectomy Orthopedic Surgeries: Surgical HX of;: Orthopedic Surgery (right shoulder, ganglion cyst removed from right hand) - Family History Family History: Reports;: Family Cancer (mom), Family Heart Disease (dad), Family Stroke (dad) - Social History Smoking Status: Never smoker Frequency of Alcohol Use: None Type of Drug Use: None Marital Status: Lives With:: Spouse Functional capacity: independent ambulation - Constitutional Constitutional: Present: fatigue, headache(s), weakness. Absent: frequent falls , weight loss - EENT Eyes: Present: blurry vision. Absent: diplopia Ears: Absent: decreased hearing, ear pain Nose, mouth and throat: Present: headache(s). Absent: dysphagia, neck pain, vertigo - Cardiovascular Cardiovascular: Present: dyspnea, lightheadedness. Absent: chest pain at rest, diaphoresis, edema, radiating jaw, neck or arm pain, palpitations - Respiratory Respiratory: Present: dyspnea. Absent: cough, hemoptysis, wheezing, snoring, pain on inspiration - Gastrointestinal Gastrointestinal: Absent: abdominal pain, change in bowel habits, coffee ground emesis, hematemesis, hematochezia, nausea - Genitourinary Genitourinary: Absent: difficulty urinating, dysuria - Musculoskeletal Musculoskeletal: Absent: back pain, joint swelling, muscle weakness - Neurological Neurological: Present: dizziness, headache(s), numbness, syncope. Absent: abnormal gait, abnormal speech, paresthesias - Psychiatric Psychiatric: Absent: anxiety, depression - Endocrine Endocrine: Present: fatigue. Absent: cold intolerance, heat intolerance - Hematologic/Lymphatic Hematologic/Lymphatic: Absent: easy bleeding, easy bruising Exam - Constitutional Vitals: Period Temp Pulse Resp BP Sys/Campos Pulse Ox Last 24 Hr 98.2 F 78 20 141/75 100 Exam: General appearance: normal weight, no acute distress - Head Head exam: Present: normocephalic, atraumatic - Eye Eye exam: Present: EOMI. Absent: conjunctival injection, nystagmus Pupils: Present: MARQUES, normal accommodation - ENT ENT exam: Present: normal exam, normal external ear exam - Neck Neck exam: Present: normal inspection. Absent: lymphadenopathy, tenderness, thyromegaly - Respiratory Respiratory exam: Present: clear to auscultation bilaterally. Absent: rales, rhonchi, wheezes - Cardiovascular Cardiovascular exam: Present: regular rate and rhythm. Absent: carotid bruit, gallop, rubs - GI/Abdominal GI/Abdominal exam: Present: normal bowel sounds. Absent: ascites, distended, mass - Extremities Exam Extremities exam: Present: normal inspection, normal capillary refill. Absent: edema - Back Exam Back exam: Absent: CVA tenderness (L), CVA tenderness (R) - Neurological Exam Neurological exam: Present: alert, oriented X3 - Psychiatric Psychiatric exam: Present: normal affect, normal mood - Skin Skin exam: Present: normal color, warm, dry Results - Labs CBC & BMP: 08/25/16 12:43 08/25/16 12:43 Lab Results: I have reviewed the past 24 hour labs <Sudha Emanuel - Last Filed: 08/25/16 19:27> History of Present Illness History of present illness: Ms. Kumar is a 46 year old female whom I saw independently from [facility] and I agree with his summary above. She tells me she felt very stressed out for months at work and that on 08/15 when the first spell of lethargy/unresponsiveness happened the stress had recently gotten better. She was admitted and stroke was ruled out last week after coming from work by ambulance. Since discharge she has been to see Dr Leal and her PCP. Today she had an outpatient MRI. I called the nurse at MRI to hear what she witnessed as the patient reported having a seizure with shaking head and face, numb lip, hands that shook so bad she couldn't hold the call button and toe shaking. The nurse Amairani Murphy reports she watchd her through the window during the MRI per protocol and did not see any movement in the MRI. The patient also had normal prolactin in ER. During the interview she complained of weakness in her left arm and it was weak in all testing but she used it o speak and move in the bed without trouble. Her MRI did not show acute stroke or motion artifact. Dr Leal has been consulted. [place] ordered an EEG, and continued her home meds. Exam - Constitutional Vitals: Period Temp Pulse Resp BP Sys/Campos Pulse Ox Last 24 Hr 98.2 F 78 20 141/75 100 Results - Labs CBC & BMP: 08/25/16 12:43 08/25/16 12:43
[2016-08-25] MEDS: NON-FORMULARY MEDICATION (Modafinil [Provigil] 200 MG) PO SCH (17:40)
[2016-08-25] MEDS ORDERED: LORazepam 1 MG TABLET PO PRN (17:53)
[2016-08-25 20:04] LABS: Apearance,Urine CLEAR (Clear); Bacteria,Urine Occasional /HPF (Few); Bilirubin,Urine Negative (Negative); Blood, Urine Negative (Negative); Glucose,Urine (UA) Negative (Negative); Ketones,Urine Negative (Negative); Mucus,Urine Few /LPF (Occasional); Nitrite,Urine Negative (Negative); Protein,Urine Negative; RBC,Urine <1 /HPF (0-4); Squamous Epithelial Cell,Urine Occasional /HPF (0-10); Urine Color Yellow (Yellow); Urine Specific Gravity 1.027 (1.001-1.035); Urine Urobilinogen < 2.0 EU/DL (0.2-1.0); WBC,Urine <1 /HPF (0-6)
[2016-08-25] MEDS: TOPIRAMATE 25 MG TABLET PO SCH (20:16)
[2016-08-25] MEDS ORDERED: ATORVASTATIN 40 MG TABLET PO SCH (21:00)
[2016-08-25] MEDS ORDERED: LORazepam 1 MG TABLET PO SCH ×2 (21:00)
[2016-08-25] MEDS ORDERED: ASPIRIN EC 81 MG TABLET PO SCH (21:00)
[2016-08-26 06:27] LABS: Basophils % 0.4 % (0.0-0.8); Eosinophils # 0.2 10*3/uL (0.0-0.87); Eosinophils % 1.7 % (0.00-10.9); Hematocrit 33.5 VOL% (35.7-47.0); Hemoglobin 11.2 GM/DL (12.0-16.0); Immature Granulocytes % 0.6 %; Immature Granulocytes Absolute 0.07 #; Lymphocytes # 4.6 10*3/uL (1.4-4.0); Lymphocytes % 41.5 % (21.3-54.2); Mean Corpuscular HGB Conc 33.4 GM/DL (32-36); Mean Corpuscular Hemoglobin 29 PG (27-34); Mean Corpuscular Volume 86.6 FL (87-102); Mean Platelet Volume 11.6 FL (9.6-12.0); Monocytes # 0.7 10*3/uL (0.11-0.8); Monocytes % 6.2 % (1.7-12.7); Neutrophils # 5.4 10*3/uL (1.4-7.4); Neutrophils % 49.6 % (38.7-73.9); Platelet Count 280 T/CUMM (130-400); Red Blood Count 3.87 MC/CUMM (3.8-5.5); Red Cell Distribution Width 12.3 % (9.3-17.3)
[2016-08-26 07:05] LABS: Albumin 3.2 G/DL (3.4-5.0); Bilirubin,Total 0.7 MG/DL (0.2-1.0); Calcium 8.2 MG/DL (8.5-10.1); Potassium 3.8 MMOL/L (3.5-5.1); Total Protein 5.8 G/DL (6.4-8.3)
[2016-08-26] MEDS: NON-FORMULARY MEDICATION (Modafinil [Provigil] 200 MG) PO SCH (08:43)
[2016-08-26] MEDS: TOPIRAMATE 25 MG TABLET PO SCH (08:43)
[2016-08-26] MEDS ORDERED: FLUoxetine 20 MG CAPSULE PO SCH ×2 (09:00→11:56)
--- NOTE | 2016-08-26 09:40 | Hospitalist Progress Note ---
Assessment and Plan (1) Abnormal liver function test Status: Acute Assessment and plan: Dr. Garzon saw the day is going watch over the next several days also check a hepatitis profile Current Visit: Yes (2) Congestive heart failure Status: Acute Assessment and plan: Better with dialysis probably just pulmonary edema Current Visit: Yes (3) Chest pain Status: Acute Assessment and plan: I can give any history of chest pain today's troponin is stable at 0.2 and a patient in renal failure we'll just watch Current Visit: No (4) End stage renal disease Status: Acute Assessment and plan: Has received dialysis followed by renal Current Visit: Yes Hospitalist: Subjective Interval history: Patient not giving much history this morning but no distress Exam - Constitutional Vitals: Period Temp Pulse Resp BP Sys/Campos Pulse Ox Last 24 Hr 97.8 F-98.2 F 71-84 14-20 97-156/52-85 96-100 Exam: Constitutional: General appearance is normal Eyes: Pupils equal round react to light and accommodation conjunctiva and lids are normal Neck: supple without masses Respiratory: Respiratory effort is normal. Lungs are clear to auscultation. Resonant to percussion. Cardiac: Regular rate and rhythm without murmur rub or gallop. PMI at the midclavicular line by palpation. Carotid arteries 2+ palpation no bruits GI: Bowel sounds normoactive, no tenderness or rebound tenderness, no organomegaly Extremities: no clubbing cyanosis or edema Results - Labs CBC & BMP: 08/26/16 05:08 08/26/16 05:08
--- NOTE | 2016-08-26 09:45 | Hospitalist Progress Note ---
Assessment and Plan (1) Syncope Status: Acute Assessment and plan: Patient admitted with a complicated spell had a MRI done yesterday that shows old encephalomalacia may be a small meningioma but no acute infarcts discussed the case with Dr. Pal my he's going to come see the patient. Currently patient is hemodynamically stable is anemic on lab weight neurology opinion for further workup Current Visit: No (2) Left-sided weakness Status: Acute Current Visit: Yes Hospitalist: Subjective Interval history: had one spell last night not near as bad as she had yesterday while she was in the MRI, she is awake and alert today without complaints Exam - Constitutional Vitals: Period Temp Pulse Resp BP Sys/Campos Pulse Ox Last 24 Hr 97.8 F-98.2 F 71-84 14-20 97-156/52-85 96-100 Exam: Constitutional: General appearance is normal Eyes: Pupils equal round react to light and accommodation conjunctiva and lids are normal Neck: supple without masses Respiratory: Respiratory effort is normal. Lungs are clear to auscultation. Resonant to percussion. Cardiac: Regular rate and rhythm without murmur rub or gallop. PMI at the midclavicular line by palpation. Carotid arteries 2+ palpation no bruits GI: Bowel sounds normoactive, no tenderness or rebound tenderness, no organomegaly Extremities: no clubbing cyanosis or edema Results - Labs CBC & BMP: 08/26/16 05:08 08/26/16 05:08
--- NOTE | 2016-08-26 11:49 | Neurology Consult Note ---
History of Present Illness History of present illness: 46 years old right-handed white lady reports that she was having an MRI done yesterday and when she was given the contrast she began to have a metallic taste in her mouth and her upper and lower limbs began to jerk. Patient states that she then went to "sleep" and did not remember much about the episode when she came to. She called Dr. Costello who instructed her to go to the ER. Patient was last seen in the ED on 08/15/2016 with similar complaints, syncope and left- sided weakness. During that visit, she was seen by me and had multiple CT scans as well as MRIs that were all negative. Her repeat MRI does not reveal any acute pathology. She underwent EEG today and had couple of episodes during the EEG characterized by finger tapping and sort of unresponsiveness. EEG was completely within normal limits. Home Medications Medication Instructions Recorded Confirmed Type LORazepam TAB [Ativan Tab] 1 mg PO BID 09/28/14 08/25/16 History Modafinil [Provigil] 200 mg PO QAM 09/28/14 08/25/16 History FLUoxetine [PROzac] 20 mg PO QAM 08/15/16 08/25/16 History Acetaminophen Tab [Tylenol Tab] 325 mg PO Q4H PRN #0 tablet 08/17/16 08/25/16 Rx Atorvastatin [Lipitor] 40 mg PO BEDTIME #30 tablet 08/17/16 08/25/16 Rx HYDROcodone/ACETAMIN 5-325 [[place] 1 tablet PO Q4H PRN #20 tablet 08/17/16 Rx 5-325] Aspirin EC Tab 81 mg PO QPM 08/25/16 08/25/16 History Pantoprazole Tab [Protonix Tab] 40 mg PO QPM 08/25/16 08/25/16 History Topiramate [Topamax] 50 mg PO BID 08/25/16 08/25/16 History Allergies Allergy/AdvReac Type Severity Reaction Status Date / Time latex Allergy RASH Verified 08/25/16 12:13 Cefaclor [From Ceclor] AdvReac Difficulty Verified 08/25/16 12:13 Breathing levofloxacin [From Levaquin] AdvReac Palpitation Verified 08/25/16 12:13 s 12 point system: reviewed and no additional remarkable complaints except as stated Medical,Surgical,& Family Hx - Medical History Psychological: History of: Depression, Previous Suicide Attempt Neurology: History of: Migraine Respiratory: History of: Bronchitis Gastrointestinal: History of: GERD, Polyps (removed), Ulcerative Colitis Musculoskeletal: Comment Only: Musculoskeletal Problems (psiatica) Reproductive: History of: Ovarian Cysts - Surgical History Cardiac Surgeries: Sugical HX of: Cardiac Catheterization Thoracic Surgeries: Patient denies;: Organ Transplant Neurologic Surgeries: Patient denies: Neurologic Surgery HEENT Surgeries: Surgical HX of: Tonsilectomy & Adenoidectomy Abdominal Surgeries: Surgical HX of: Appendectomy, Cholecystectomy, Colonoscopy , EGD Reproductive Surgeries: Surgical HX of;: Hysterectomy Orthopedic Surgeries: Surgical HX of;: Orthopedic Surgery (right shoulder, ganglion cyst removed from right hand) - Family History Family History: Reports;: Family Cancer (mom), Family Heart Disease (dad), Family Stroke (dad) - Social History Smoking Status: Never smoker Frequency of Alcohol Use: None Type of Drug Use: None Exam - Constitutional Vitals: Period Temp Pulse Resp BP Sys/Campos Pulse Ox Last 24 Hr 97.8 F-98.2 F 71-84 14-20 97-156/52-85 96-100 Exam: GENERAL: Patient is in no acute distress. NECK: Neck is supple. There is no JVD. No carotid bruits present. No thyroid masses. CVS: First and second heart sounds are normal. There is no S3 present. Regular rate and rhythm. RESPIRATORY: Lungs are clear to auscultation without any rales or rhonchi. ABDOMEN: Soft and non-tender. Bowel sounds are present. There is no hepatosplenomegaly. EXT: There is no palpable edema. Peripheral pulses are present. Skin: No rashes Central Nervous system: General: Alert, awake and Oriented x 3 Speech: Fluent Comprehension: Intact and normal Facial expressions: Normal Cranial Nerves: CN1/Olfactory: Normal CN II/ Optic: Normal, Visual [place] unreliable CN III, and : MAQRUES & EOMI CN V: Normal & intact CN VII: face is symmetric CNVIII: Normal CN XI/X/XI/XII: Intact and Normal Motor: Bulk and Tone is normal. Strength in the right 5/5 Strength in the left 5/5 Sensory: Grossly intact for all the modalities of PP, LT and temp sense Reflexes: 1+ and symmetrical Cerebellar function: Normal finger to nose and heel to nails testing. Toes: Equivocal Gait: Normal heel to heel and toe to toe and tandem walk. Results - Labs CBC & BMP: 08/26/16 05:08 08/26/16 05:08 Assessment and Plan (1) Syncope Status: Acute Assessment and plan: We will consult [facility] epilepsy department for further evaluation as an outpatient Current Visit: No (2) Anxiety Status: Acute Assessment and plan: Continue Prozac continues to 40 mg daily Current Visit: Yes (3) Chronic migraine Status: Acute Assessment and plan: Continue Topamax the same dose Follow-up with me as needed Current Visit: Yes
[2016-08-26 12:10] VITALS: BP 141/88
--- NOTE | 2016-08-26 13:26 | Discharge Summary ---
Hospital Course - Hospital Course Hospital Course: Patient was admitted to the hospital with of 20 spell during MRI her MRI turned out to show old stroke the neurologist saw her while she was here and felt like her biggest issues related EPILEPSY set her up [facility] to be evaluated increase her Prozac to 40 mg daily. Laboratory data showed a hematocrit of 33 otherwise normal chemistry profile I'll be in the 3.2 urine unremarkable. One set of vital signs showed a little drop in blood pressure otherwise no changes unresponsive she can go home we discussed with the patient and she wants to go home today. Follow up with her primary care doctor in 1 week and at [facility] as mentioned Diagnosis - Discharge Diagnosis (1) Syncope Status: Acute (2) Left-sided weakness Status: Acute Discharge Plan - Discharge Data Disposition: Disch To Home/Self Care Condition at Discharge: Stable Discharge Diet: advance to your usual diet Activity: resume usual activities as tolerated Hygiene: no restrictions Weight Bearing at Discharge: full weight bearing Driving: no restrictions Contact your physician if you experience:: fever over 101 - Discharge Medications Continue LORazepam TAB [Ativan Tab] 1 mg PO BID Modafinil [Provigil] 200 mg PO QAM HYDROcodone/ACETAMIN 5-325 [[place] 5-325] 1 tablet PO Q4H PRN #20 tablet PRN Reason: Pain Mild (1-3) Topiramate [Topamax] 50 mg PO BID Pantoprazole Tab [Protonix Tab] 40 mg PO QPM Atorvastatin [Lipitor] 40 mg PO BEDTIME #30 tablet Aspirin EC Tab 81 mg PO QPM Discontinued Acetaminophen Tab [Tylenol Tab] 325 mg PO Q4H PRN #0 tablet PRN Reason: fever, headache/body aches FLUoxetine [PROzac] 20 mg PO QAM - Follow Up or Referral - Forms/Instructions Exam - Constitutional Vitals: Period Temp Pulse Resp BP Sys/Campos Pulse Ox Last 24 Hr 97.8 F-98.5 F 70-84 14-20 97-156/52-88 96-100 Exam: Constitutional: General appearance is normal Eyes: Pupils equal round react to light and accommodation conjunctiva and lids are normal Neck: supple without masses Respiratory: Respiratory effort is normal. Lungs are clear to auscultation. Resonant to percussion. Cardiac: Regular rate and rhythm without murmur rub or gallop. PMI at the midclavicular line by palpation. Carotid arteries 2+ palpation no bruits GI: Bowel sounds normoactive, no tenderness or rebound tenderness, no organomegaly Extremities: no clubbing cyanosis or edema Discharge Results Labs on day of discharge: Labs from last 24 hours 08/26/16 08/26/16 08/25/16 05:08 05:08 Unknown WBC 11.0 RBC 3.87 Hgb 11.2 L Hct 33.5 L MCV 86.6 L MCH 29 MCHC 33.4 RDW 12.3 Plt Count 280 MPV 11.6 Neut % (Auto) 49.6 Lymph % (Auto) 41.5 [place] % (Auto) 6.2 Eos % (Auto) 1.7 Baso % (Auto) 0.4 Neut # (Auto) 5.4 Lymph # (Auto) 4.6 H [place] # (Auto) 0.7 Eos # (Auto) 0.2 Baso # (Auto) 0.0 Immature Gran % 0.6 Nucleated RBC % 0.0 Immature Gran # 0.07 Nucleated RBCs # 0.00 Sodium 143 Potassium 3.8 Chloride 108 H Carbon Dioxide 27 Anion Gap 11.8 BUN 10 Creatinine 0.70 GFR Calculation 136 BUN/Creatinine Ratio 14.00 Glucose 87 Calculated Osmolality 282.0 Calcium 8.2 L Total Bilirubin 0.70 AST 9 ALT 14 Alkaline Phosphatase 73 Total Protein 5.8 L Albumin 3.2 L Globulin 2.6 Albumin/Globulin Ratio 1.2 Urine Color Yellow Urine Appearance Clear Urine pH 6.0 Ur Specific [place] 1.027 Urine Protein Negative Urine Glucose (UA) Negative Urine Ketones Negative Urine Blood Negative Urine Nitrate Negative Urine Bilirubin Negative Urine Urobilinogen < 2.0 H Urine Leukocytes Negative Urine RBC <1 Urine WBC <1 Ur Squamous Epith Cells Occasional Urine Bacteria Occasional Urine Mucus Few Ur Culture Indicated? Not indicated DS: Provider Date of admission: 08/25/16 14:49 Primary care physician: . No PCP Attending physician on admission: Sudha Emanuel MD Consults: 08/25/16 14:55 Consult to Pharmacy [CONS] Routine Reason for Pharmacy Consult: Adjust Meds Renal Funct Discharging clinician: Filippo Del Rosario MD
--- NOTE | 2016-08-26 20:21 | Electroencephalogram ---
DATE OF STUDY: HISTORY: [id number] lady with a history of spells and episode of change in mental status. INTRODUCTION: A digital EEG was performed using the standard 10/20 system of electrode placement wi th one channel of EKG monitoring. Photic stimulation is performed. DESCRIPTION OF RECORD: The background is well organized, consists of 8.5 to 9 hertz moderate-amplit ude bilaterally symmetrical alpha rhythm predominant in the posterior head region, which attenuates with eye opening. Photic stimulation was not performed. Hyperventilation produced no abnormalities . Drowsiness and sleep are not achieved. 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 There were no electrographic changes recorded during these dizzy spells. Heart rate 71 beats per minute. IMPRESSION: NORMAL EEG DURING WAKEFULNESS. CLINICAL CORRELATION: No focal nor epileptiform features are seen. Normal EEG does not rule out th e diagnostic possibility of epilepsy. The episodes were non-epileptic in nature. Clinical correlat ion is suggested.
== END 2016-08-26 14:47 | disposition home or self-care (01) ==
LOC: N.ED 12:08 → N.EDINP 12:08 → N.5E 15:31
PROVIDERS: ADMIT Internal Medicine; ATTEND Internal Medicine